=== PATIENT | male | born 1945 | race Caucasian/White ===

== ENCOUNTER 2017-01-06 18:19 | Outpatient (CLI) | payer MEDICARE, OTHER | END 2017-01-06 18:20 | disposition short-term general hospital (02) | LOC: EMS 18:19 | PROVIDERS: ATTEND Surgery | DX: R10.9 Unspecified abdominal pain (principal) | CPT/HCPCS: A0425; A0427 ==

== ENCOUNTER 2020-11-12 16:56 | Outpatient (CLI) | payer MEDICARE, OTHER | END 2020-11-12 16:57 | disposition short-term general hospital (02) | LOC: EMS 16:56 | DX: M54.9 Dorsalgia, unspecified (principal) | CPT/HCPCS: A0425; A0427 ==

== ENCOUNTER 2021-09-18 19:16 | Outpatient (CLI) | payer MEDICARE, OTHER | END 2021-09-18 19:17 | disposition short-term general hospital (02) | LOC: EMS 19:16 | DX: R07.9 Chest pain, unspecified (principal) | CPT/HCPCS: A0425; A0427 ==